=== PATIENT | male | born 1945 | race Caucasian/White ===

== ENCOUNTER → 2016-09-20 | Outpatient (CLI) | payer OTHER | LOC: FIMAGING 10:25 | PROVIDERS: ATTEND Family Medicine | DX: R05 Cough (principal); R76.11 Nonspecific reaction to tuberculin skin test without active tuberculosis; J44.9 Chronic obstructive pulmonary disease, unspecified; F17.200 Nicotine dependence, unspecified, uncomplicated; M25.78 Osteophyte, vertebrae ==

== ENCOUNTER 2018-03-23 17:22 | Emergency (ER) | payer OTHER ==
--- NOTE | 2018-03-23 19:14 | EDPHY ---
H & P Stated Complaint: sneezing chest congestion Time Seen by Provider: 03/23/18 18:47 HPI/ROS: CHIEF COMPLAINT: Nasal congestion, sore throat HISTORY OF PRESENT ILLNESS: 72-year-old male presents with 1 day history of nasal congestion and sore throat. Onset of nasal congestion this morning. Took an [id number] decongestant with some relief. Associated with moderate sore throat. No fever or cough. REVIEW OF SYSTEMS: complete 10 point ROS reviewed and is negative except for the noted elements in the HPI - Personal History Current Tetanus Diphtheria and Acellular Pertussis (TDAP): Unsure - Medical/Surgical History Hx Asthma: No Hx Chronic Respiratory Disease: No Hx Diabetes: No Hx Cardiac Disease: No Hx Renal Disease: No Hx Cirrhosis: No Hx Alcoholism: No Hx HIV/AIDS: No Hx Splenectomy or Spleen Trauma: No Other PMH: denies - Social History Smoking Status: Current every day smoker - Physical Exam Exam: General Appearance: Alert, pleasant, congested Eyes: Pupils equal and round, no conjunctival injection ENT, Mouth: Mucous membranes moist, pharyngeal erythema Neck: Normal inspection Respiratory: Lungs are clear to auscultation Cardiovascular: Regular rate and rhythm Gastrointestinal: Abdomen is soft and nontender Neurological: A&O, nonfocal, normal gait Skin: Warm and dry, no rash Extremities: Nontender, no pedal edema Psychiatric: Mood and affect normal Constitutional: Initial Vital Signs Temperature (C) 36.8 C 03/23/18 17:28 Heart Rate 80 03/23/18 17:28 Respiratory Rate 18 03/23/18 17:28 Blood Pressure 122/85 H 03/23/18 17:28 O2 Sat (%) 95 03/23/18 17:28 O2 Delivery Mode Room Air Allergies/Adverse Reactions: No Known Allergies Allergy (Verified 03/23/18 17:27) Home Medications: Medication Instructions Recorded NK [No Known Home Meds] 03/23/18 Departure - Departure Disposition: Home, Routine, Self-Care Clinical Impression: Upper respiratory infection Qualifiers: URI type: unspecified viral URI Qualified Code(s): J06.9 - Acute upper respiratory infection, unspecified Condition: Good Instructions: Upper Respiratory Infection (ED) Additional Instructions: Use a decongestant during the day and nighttime cold medicine at night. Drink plenty of fluids. Return for worsening symptoms, fever, shortness of breath or any concerns. Referrals: Susana Parrish MD [Medical Doctor] - As per Instructions
[2018-03-23 19:39] VITALS: BP 139/87
== END 2018-03-23 19:40 | disposition home or self-care (01) ==
DX: J06.9 Acute upper respiratory infection, unspecified (principal); F17.200 Nicotine dependence, unspecified, uncomplicated